=== PATIENT | female | born 1940 | race Caucasian/White ===

== ENCOUNTER 2016-10-13 22:00 | Inpatient (IN) | payer MEDICARE ==
--- NOTE | ~2016-10-13 | EKG ---
PATIENT: DWIGHT MANNING UNIT #: [id number] Ventricular Rate: 100 BPM Atrial Rate: 100 BPM P-R Interval: 162 ms QRS Duration: 96 ms Q-T Interval: 360 ms QTC Calculation(Bezet): 464 ms P [place]: 54 degrees Calculated R [place]: 51 degrees Calculated T [place]: 36 degrees Diagnosis Line: Normal sinus rhythm Diagnosis Line: Normal ECG Diagnosis Line: No previous ECGs available Diagnosis Line: Confirmed by KERRI SHIN MD ([id number]) on 10/15/2016 Diagnosis Line: 5:32:43 PM INTERPRETING MD: ALEIDA WEATHERS
--- NOTE | ~2016-10-13 | CO ---
Unit #: [id number] #: [id number] Patient: DWIGHT MANNING [id number] [address] [place], [place] [address] [id number] MR#: [id number] NAME: DWIGHT MANNING. ROOM: 212 Age: 75 Sex: F Admission Date: 10/13/2016 : 1940 Attending Physician: Pauline Banks M.D. Consultation Date: 10/14/2016 CONSULTATION REPORT CHIEF COMPLAINT Left flank pain, nausea and vomiting. HISTORY OF PRESENT ILLNESS This 75-year-old woman who reports not seeing a physician for 30 years and having no medical problems was admitted earlier through the emergency department with an obstructing distal left ureteral stone. She has developed fever, hypotension and has markedly elevated white count and is thus expedited for emergency stent placement and seen in the preoperative holding area this morning. She relates no prior history of kidney stone or of urinary infection. In fact, she has no history of lower urinary tract symptoms, gross hematuria or incontinence either. She noted onset of left flank pain yesterday morning and reports severe nausea and vomiting, counted as 40 times since onset of symptoms, although it is currently controlled. She presented to the emergency department and was noted to have a 7 x 5 mm stone obstructing the distal left ureter near the bladder with moderately severe hydroureteronephrosis. Other findings on CT are noted below. PAST MEDICAL HISTORY No illnesses reported. PAST SURGICAL HISTORY None reported. MEDICATIONS None. ALLERGIES Sulfa, morphine, Phenergan. She had an iodine reaction to contrast injection 60 years ago with rash. FAMILY HISTORY Noncontributory. SOCIAL HISTORY Nonsmoker. REVIEW OF SYSTEMS Pertinent for the above. PHYSICAL EXAMINATION Unit #: [id number] #: [id number] Patient: DWIGHT MANNING GENERAL: The patient is alert, currently fairly comfortable with her pain controlled and no nausea or vomiting on going. She does not appear septic. VITAL SIGNS: Her temperature was 101 degrees, blood pressure 91/44. She reports that she always has low blood pressure, heart rate 95, height 5 feet 5 inches. HEENT: Unremarkable. ABDOMEN: She is overweight with clear anterior left upper quadrant tenderness and left CVA tenderness. EXTREMITIES: No edema. NEUROLOGIC: Intact. DIAGNOSTIC STUDIES LABORATORY RESULTS: Urinalysis shows 5 to 10 wbc's, 10 to 25 rbc's, 1+ blood, no nitrites, 2+ leukocyte esterase. BUN 23, creatinine 1.1. WBC 23.6. IMAGING STUDIES: CT scan shows the obstructing distal left 7 x 5 mm stone. There was also a 6 mm left lower pole renal stone ipsilaterally nonobstructing. In the right kidney, there is a 3 mm nonobstructing peripheral stone in the lower pole also and an angiomyolipoma affecting the anterior lower portion of the kidney measuring 3.2 x 2.8 cm. IMPRESSION 1. Obstructing distal left ureteral stone, presentation consistent with obstructive pyelonephritis. I have explained in detail to the patient the indication for stenting and bladder drainage as a first-stage followed by completion ureteroscopy in which case we can treat both her ureteral and renal stones. 2. Small right renal stone not thought clinically significant at this time. 3. 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 PLAN We will proceed directly with emergency placement of left ureteral stent and catheter drainage. She received Rocephin 5 hours ago and we will await urine culture results. Dictated by... Bryan Hercules M.D. MESERET/be TD: 10/15/2016 00:37 JOB #: [id number] CONSULTATION REPORT X Bryan Hercules MD X CONSULTATION REPORT
--- NOTE | ~2016-10-13 | OR ---
Unit #: [id number] #: [id number] Patient: DWIGHT MANNING [id number] [address] [address] [id number] Kayli MR#: [id number] NAME: DWIGHT MANNING. ROOM: 212 Date of Procedure: 10/14/2016 Admission Date: 10/13/2016 Surgeon: Bryan Hercules M.D. : 1940 Attending Physician: Pauline Banks M.D. OPERATIVE REPORT PREOPERATIVE DIAGNOSIS Obstructive left pyelonephritis. POSTOPERATIVE DIAGNOSIS Obstructive left pyelonephritis. PROCEDURE PERFORMED Cystoscopy, left retrograde aspiration of renal pelvic urine, placement of double-J ureteral stent and Eubanks catheter. ANESTHESIA General. INDICATIONS FOR PROCEDURE This 75-year-old woman presents with obstructive left pyelonephritis from a 7 mm distal left ureteral stone and is taken urgently to the operating room. DESCRIPTION OF PROCEDURE The patient was given satisfactory general anesthesia and positioned in dorsal lithotomy. The genitalia were prepped and draped. The 21-Armenian rigid cystoscope was introduced with a 30-degree lens and video. There is spotty evidence of acute cystitis cystic, mild and diffusely as well as some evidence of chronic trigonitis. The right ureteral orifice was difficult to identify. The left ureteral orifice was bulging prominently. The remainder of the bladder was normal with healthy mucosa. Fluoroscopy demonstrated a full standing column of contrast from the level of the bladder, severe hydroureteronephrosis and persistent nephrogram due to severe obstruction. A Pollack catheter was introduced in the left ureteral orifice over a sensor guidewire and advanced up to the kidney where 10 mL of cloudy yellow urine were submitted for additional culture. Over the guide wire, I then placed a 24 x 6 double-J stent internally and drained the bladder with a Eubanks catheter to complete the procedure. Dictated by... Bryan Hercules M.D. MESERET/be TD: 10/15/2016 01:10 Unit #: [id number] #: [id number] Patient: DWIGHT MANNING JOB #: [id number] OPERATIVE REPORT X Bryan Hercules MD PROCEDURE OPERATIVE NOTE
--- NOTE | ~2016-10-13 | CT2 ---
[facility] A Service of [facility] RADIOLOGY TEXT RESULTS PATIENT: DWIGHT MANNING LOCATION: A : 42 UNIT #: [id number] AGE: [address]: Pauline Banks MD SEX: F ORDER DR: [id number] [facility] [address] [facility]. [place], [place] [address] [id number] MR#: [id number] Acc #: [id number] NAME: DWIGHT MANNING. : 1940 SEX: F STUDY DATE/TIME: 10/13/2016 20:54 UNIT: [facility] ROOM: [facility] STUDY DESCRIPTION: CT Abd and Pelv W Cont Attending Physician: Pauline Banks M.D. Ordering Physician: Bryan Del Real M.D. Primary Care Physician: No Primary Care Physician MEDICAL IMAGING REPORT This report is preliminary unless electronic signature is present EXAMINATION CT abdomen and pelvis with contrast. DATE 10/13/2016 HISTORY Nausea, vomiting, and abdominal pain for 2 days. COMPARISON None. PROCEDURE 5 mL axial images from the lung bases through the lesser trochanters after intravenous and enteric contrast administration. Sagittal and coronal reformatted images were obtained. This CT exam was performed with one or more of the following radiation dose reduction techniques: automatic exposure control, adjustment of mA and/or kV according to patient size, and iterative reconstruction. FINDINGS ABDOMEN FINDINGS: Severe left hydronephrosis and hydroureter is present secondary to an obstructing 7 x 5 mm left ureterovesical junction stone. There is diminished enhancement of the left kidney and perinephric stranding. Small left renal cyst. Nonobstructing stone in the left upper renal pole measures 7 mm. 2 small nonobstructing right renal stones. Heterogeneous mixed soft tissue mass-fat density lesion in right anterior mid kidney measures 3.2 x 2.8 cm with microscopic fat (Hounsfield units -40), consistent with benign renal angiomyolipoma. Lung bases are free of consolidation. Reflux of the enteric contrast into lower thoracic esophagus. Small esophageal hiatal hernia. [facility] A Service of [facility] RADIOLOGY TEXT RESULTS PATIENT: DWIGHT MANNING LOCATION: [facility] 212-01 : 42 UNIT #: [id number] AGE: [address]: Pauline Banks MD SEX: F ORDER DR: 2.4 cm gallstone without pericholecystic inflammation or biliary dilation. Liver, spleen, pancreas and adrenal glands are normal. A small umbilical hernia contains only fat. Normal appendix. PELVIS FINDINGS: Urinary bladder, uterus and rectum are normal. Sparse sigmoid diverticular changes without acute diverticulitis. Facet arthropathy in the lower lumbar spine. No acute osseous abnormalities. IMPRESSION 1. 7 x 5 mm obstructing left ureterovesical junction stone with sgrzeqex-ib-wzppqd left hydronephrosis, hydroureter and diminished enhancement of left kidney. 2. Nonobstructing bilateral intrarenal calculi. 3. 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 4. Uncomplicated cholelithiasis. 5. Uncomplicated sigmoid diverticulosis. 6. Small esophageal hiatal hernia with reflux of enteric contrast into the lower thoracic esophagus. 7. The appendix is normal. Dictated by... Dunia Segovia M.D. THIS IS AN ELECTRONICALLY VERIFIED REPORT Dunia Segovia M.D. at 10/14/2016 10:02 AM Jorge TD: 10/14/2016 09:18 JOB #: [id number] MEDICAL IMAGING REPORT COPY
--- NOTE | ~2016-10-13 | HP ---
Unit #: [id number] #: [id number] Patient: DWIGHT MANNING [id number] [address] [address] [id number] I MR#: [id number] NAME: DWIGHT MANNING. ROOM: 212 Age: Sex: F Admission Date: 10/13/2016 : 1940 Attending Physician: Pauline Banks M.D. HISTORY AND PHYSICAL REVISED REPORT CHIEF COMPLAINT Renal colic with obstructing 7.5 mm distal left ureteral stone, intractable nausea and vomiting, urinary tract infection. HISTORY OF PRESENT ILLNESS This pleasant, healthy 75-year-old female is admitted for renal colic. The patient states over the past couple weeks she notes sharp, intermittent transient back pain. This morning, she developed severe lower abdominal pain with intractable nausea and vomiting. She denies urinary symptoms. She presents to this emergency department where she is mildly tachycardic. CT scan performed shows an obstructing left distal ureteral stone with a cbfcaryt-uc-znzxta hydronephrosis and hydroureter. Urinalysis does show hematuria and pyuria. However, patient is quite stable, has no flank pain, and I do not believe this represents obstructive pyelonephritis. In the ER, she was treated with Zofran, Dilaudid, bolus with saline, given 1 gram of ceftriaxone and Urology has also been notified. PAST MEDICAL HISTORY Completely negative. ALLERGIES 1. Sulfa. 2. Phenergan. 3. Iodine. 4. Morphine. HOME MEDICATIONS None. SOCIAL HISTORY The patient lives alone. She is a lifelong nonsmoker, does not drink alcohol. FAMILY HISTORY Positive for kidney stones. REVIEW OF SYSTEMS Notable for intractable nausea and vomiting with lower abdominal pain, please see above details, recent sharp back pain, six vaginal deliveries, and rheumatic fever as a child. All other systems were reviewed and are Unit #: [id number] #: [id number] Patient: DWIGHT MANNING negative. PHYSICAL EXAMINATION VITAL SIGNS: Temperature 98.2, pulse 111, respirations 16, blood pressure 122/58, O2 saturation 100% on room air. GENERAL: Pleasant, 75-year-old female currently in no acute distress after receiving Dilaudid. HEENT: Eyes PERRLA. Extraocular muscles are intact. Pharynx dry mucosal membranes. NECK: Supple without adenopathy or thyromegaly. CHEST: Clear. BACK: No CVA tenderness. HEART: Normal S1, S2 without S3, S4 or murmur. ABDOMEN: Bowel sounds are present. Mild left lower quadrant tenderness without rebound or guarding. No hepatosplenomegaly or masses. EXTREMITIES: Without clubbing, cyanosis, or edema. Pedal pulses are present. NEUROLOGIC: Awake, alert, oriented. Cranial nerves are intact. Equal strength throughout. DIAGNOSTIC STUDIES LABORATORY: Hematocrit 39.6, white blood count 25.3, normal platelet count with 2 bands noted. SMA-12 glucose 140, potassium 3.2. Urinalysis 2+ leukocyte esterase with 10-25 rbc's, 5-10 wbc's, 1+ bacterial but few squamous epithelial cells noted, 1+ bacteria, 3+ ketones. IMAGING: CT scan 7.5 distal left ureteral obstructing stone at the left UVJ with moderate severe hydronephrosis and hydroureter. There is a right renal angiomyolipoma, gallstones, diverticular disease, acid reflux. ASSESSMENT 1. Renal colic with obstructing 7.5 distal left ureteral stone associated with hydronephrosis, patient is experiencing intractable nausea and vomiting along with intractable pain. 2. Urinary tract infection but no evidence of obstructive pyelonephritis on exam. 3. Hypokalemia secondary to nausea and vomiting. PLAN 1. IV fluids and supportive treatment. 2. Replace potassium and check magnesium. 3. Continue Rocephin for now pending cultures. 4. Urology consultation was done in the ER and they will be seeing the patient in the morning. They asked that the patient be made n.p.o. for procedure in the morning. 5. SCDs for DVT prophylaxis. 6. Obtain EKG. Dictated by Unit #: [id number] #: [id number] Patient: DWIGHT MANNING M.D. AML/elizabeth TD: 10/13/2016 22:54 JOB #: [id number] CC: [place]/invision Please Delete HISTORY AND PHYSICAL Page 1 of 1 X Gisselle Spence MD X HISTORY AND PHYSICAL
--- NOTE | ~2016-10-13 | DS ---
Unit #: [id number] #: [id number] Patient: DWIGHT RAMSEY [id number] [address] [address] [id number] I MR#: [id number] NAME: DWIGHT RAMSEY. ROOM: 212 Age: 75 Sex: F Admission Date: 10/13/2016 : 1940 Discharge Date: 10/16/2016 Attending Physician: Pauline Banks M.D. Primary Care Physician: Primary Care Physician No DISCHARGE SUMMARY PRIMARY CARE PROVIDER None. PRINCIPAL DIAGNOSES 1. Obstructive left ureteral stone with associated hydronephrosis, now status post cystoscopy and stent placement. 2. Systemic inflammatory response syndrome. The patient has had negative urine culture throughout hospitalization. 3. Mild hypocalcemia. 4. Illness-related thrombocytopenia, now resolved. CONSULTANTS Dr. Hercules, Urology. PROCEDURES Cystoscopy, left retrograde aspiration of renal pelvic urine, placement of double-J ureteral stent and Eubanks catheter placement. These occurred without complication. CLINICAL HISTORY AND HOSPITAL COURSE Ms. Ramsey is a nice 75-year-old female without a past medical history, who presents to the emergency department with left flank pain. Please refer H and P for further details. CT scan revealed a large 7 x 5 mm left ureterovesical junction stone with associated hydronephrosis. The patient was subsequently admitted. The patient was placed on empiric IV fluids and antibiotics, and Dr. Hercules was consulted. The patient subsequently underwent ureteral stent placement. Postoperatively, she has done very well. Eubanks catheter has been removed, and she is urinating spontaneously without any evidence of hematuria. Plan is to remove ureteral stent in approximately 10 to 14 days. Upon presentation, the patient was found to have significant leukocytosis of 25,000. There were concerns about underlying urinary tract infection. However, multiple urine cultures have all remained negative. I am going to empirically her treat with antibiotics given her stent placement, but I do not feel she meets sepsis criteria given lack of infection. The patient will be discharged home later today. DISCHARGE CONDITION Stable. Unit #: [id number] #: [id number] Patient: DWIGHT RAMSEY DISCHARGE STATUS Discharged to home. DISCHARGE MEDICATIONS Omnicef 300 mg b.i.d. for 10 days, ibuprofen 800 mg one every 8 hours p.r.n. for pain number given 10. DISCHARGE INSTRUCTIONS She can follow regular diet. She can increase her activity as tolerated. FOLLOWUP The patient will follow up with Dr. Hercules in his office in approximately 10 days. Dictated by... Katalina Flowers/be TD: 10/18/2016 05:33 JOB #: [id number] DISCHARGE SUMMARY X Pauline Banks MD X DISCHARGE SUMMARY
[2016-10-13 19:38] LABS: URINE SOURCE CLEAN CATCH
[2016-10-13 19:42] LABS: BASOPHIL# 0.1 X10e3 (0-0.3); BASOPHIL% 0.3 % (0-2.5); HEMATOCRIT 39.6 % (35.0-45.0); HEMOGLOBIN 13.1 gm/dL (12.0-16.0); LYMPHOCYTE# 0.4 X10e3 (1.0-3.5); LYMPHOCYTE% 1.6 % (17.0-45.0); MEAN CELL VOLUME 89.8 FL (83-96); MEAN CORPUSCULAR HEMOGLOBIN 29.7 PG (28-34); MEAN CORPUSCULAR HGB CONC 33.1 g/dL (30-36); MEAN PLATELET VOLUME 6.8 FL (6.5-11.5); MONOCYTE# 1.2 X10e3 (0-1.0); MONOCYTE% 4.9 % (3.0-12.0); NEUTROPHIL# 23.6 X10e3 (1.5-7.1); NEUTROPHIL% 93.2 % (40-75); PLATELET COUNT 260 X10e3 (140-420); RED BLOOD COUNT 4.41 X10e (3.90-5.30); RED CELL DISTRIBUTION WIDTH 14.3 % (11.0-15.5); WHITE BLOOD COUNT 25.3 X10e3 (4.0-10.5)
[2016-10-13 19:44] LABS: DIFF IND YES
[2016-10-13 19:46] LABS: URINE APPEARANCE CLEAR; URINE BILIRUBIN NEG (NEG); URINE BLOOD 1+ (NEG); URINE COLOR YELLOW; URINE GLUCOSE NEG (NEG); URINE KETONE 3+ (NEG); URINE LEUKOCYTE ESTERASE 2+ (NEG); URINE NITRATE NEG (NEG); URINE PH 6.5 (5-8); URINE PROTEIN NEG (NEG); URINE SPECIFIC GRAVITY 1.022 (1.003-1.035); URINE UROBILINOGEN 0.2 MG/DL (NEG)
[2016-10-13 19:47] LABS: URINE BACTERIA AUWI 1+ (NEGATIVE); URINE SQUAMOUS EPITHELIAL CELL FEW /[HPF]
[2016-10-13 20:00] LABS: ALBUMIN SERUM 4.1 g/dL (3.5-5.0); BILIRUBIN, DIRECT 0.1 mg/dL (0.0-0.2); BILIRUBIN,TOTAL 1.1 mg/dL (0.2-2.0); BUN/CREATININE RATIO 20.9; CALCIUM SERUM 8.9 mg/dL (8.4-10.2); CREATININE SERUM 1.1 mg/dL (0.6-1.4); GLOM FILT RATE Estimated 51.7 mL/min (>60); POTASSIUM 3.2 mmol/L (3.5-5.1); PROTEIN TOTAL SERUM 7.2 g/dL (6.0-8.3)
[2016-10-13 20:05] LABS: PLATELET ESTIMATE NORMAL (NORMAL)
[~2016-10-13 22:00] MED LIST: NO MEDICATIONS
[2016-10-14 05:36] LABS: BASOPHIL% 0.1 % (0-2.5); HEMATOCRIT 34.8 % (35.0-45.0); HEMOGLOBIN 11.5 gm/dL (12.0-16.0); LYMPHOCYTE# 0.5 X10e3 (1.0-3.5); LYMPHOCYTE% 2.1 % (17.0-45.0); MEAN CELL VOLUME 90.5 FL (83-96); MEAN CORPUSCULAR HEMOGLOBIN 29.8 PG (28-34); MEAN PLATELET VOLUME 6.6 FL (6.5-11.5); MONOCYTE% 4.4 % (3.0-12.0); NEUTROPHIL% 93.4 % (40-75); PLATELET COUNT 190 X10e3 (140-420); RED BLOOD COUNT 3.85 X10e (3.90-5.30); RED CELL DISTRIBUTION WIDTH 14.5 % (11.0-15.5); WHITE BLOOD COUNT 23.6 X10e3 (4.0-10.5)
[2016-10-14 05:40] LABS: DIFF IND NO
[2016-10-14 06:35] LABS: BUN/CREATININE RATIO 20.9; CALCIUM SERUM 8.2 mg/dL (8.4-10.2); CREATININE SERUM 1.1 mg/dL (0.6-1.4); GLOM FILT RATE Estimated 51.7 mL/min (>60); MAGNESIUM 1.6 mg/dL (1.6-3.0); POTASSIUM 4.2 mmol/L (3.5-5.1)
[2016-10-15 06:30] LABS: HEMATOCRIT 35.1 % (35.0-45.0); HEMOGLOBIN 11.6 gm/dL (12.0-16.0); MEAN CELL VOLUME 90.5 FL (83-96); MEAN CORPUSCULAR HGB CONC 33.1 g/dL (30-36); MEAN PLATELET VOLUME 8.1 FL (6.5-11.5); RED BLOOD COUNT 3.88 X10e (3.90-5.30); RED CELL DISTRIBUTION WIDTH 15.1 % (11.0-15.5); WHITE BLOOD COUNT 20.4 X10e3 (4.0-10.5)
[2016-10-15 07:20] LABS: BLOOD UREA NITROGEN 19 mg/dL (9-23); BUN/CREATININE RATIO 21.11; CARBON DIOXIDE 22 mmol/L (22-31); CHLORIDE 106 mmol/L (100-111); CREATININE SERUM 0.9 mg/dL (0.6-1.4); GLOM FILT RATE Estimated ABOVE60 mL/min (>60); GLUCOSE FASTING 76 mg/dL (70-110); MAGNESIUM 1.9 mg/dL (1.6-3.0); POTASSIUM 4.1 mmol/L (3.5-5.1); SODIUM 134 mmol/L (135-145)
[2016-10-16 04:26] LABS: HEMOGLOBIN 11.3 gm/dL (12.0-16.0); MEAN CELL VOLUME 89.1 FL (83-96); MEAN CORPUSCULAR HEMOGLOBIN 29.5 PG (28-34); MEAN CORPUSCULAR HGB CONC 33.1 g/dL (30-36); MEAN PLATELET VOLUME 7.4 FL (6.5-11.5); RED BLOOD COUNT 3.81 X10e (3.90-5.30); RED CELL DISTRIBUTION WIDTH 14.2 % (11.0-15.5); WHITE BLOOD COUNT 12.2 X10e3 (4.0-10.5)
[2016-10-16] MEDS ORDERED: OMNICEF300 M1 PO (12:06)
[2016-10-16] MEDS ORDERED: IBUPROFEN800 MG PO (12:06)
[2016-11-02] MEDS ORDERED: NO MEDICATIONS (11:27)
== END 2016-10-16 13:58 | disposition home or self-care (01) | DRG 694 ==
LOC: CED 22:00 → CEDOF 22:20 → C2A 23:49
PROVIDERS: Emergency Medicine; Internal Medicine; Urology
PROC: 0T9B80Z Drainage of Bladder with Drainage Device, Via Natural or Artificial Opening Endoscopic (ICD-10-PCS; 2016-10-14)
PROC: 0T778DZ Dilation of Left Ureter with Intraluminal Device, Via Natural or Artificial Opening Endoscopic (ICD-10-PCS; principal; 2016-10-14 07:00)
DX: N13.2 Hydronephrosis with renal and ureteral calculous obstruction (principal); D69.6 Thrombocytopenia, unspecified; D17.71 Benign lipomatous neoplasm of kidney; Z88.2 Allergy status to sulfonamides; E87.6 Hypokalemia; E83.51 Hypocalcemia
CPT/HCPCS: 36415; 74177; 80048; 80076; 81003; 83690; 83735; 85025; 85027; 87086; 88108; 93005; 96361; 96374; 96375; 99285; C2617; J0696; J1170; J1650; J2250; J2370; J2405; J3010; Q9967

== ENCOUNTER → 2016-11-06 | Day surgery (SDC) | payer MEDICARE ==
[~2016-11-06] MED LIST changes: +IBUPROFEN800 MG PO; +OMNICEF300 M1 PO
--- NOTE | ~2016-11-06 | OR ---
Unit #: [id number] #: [id number] Patient: DWIGHT MANNING [id number] [address] [place], [place] [address] [id number] MR#: [id number] NAME: DWIGHT MANNING. ROOM: Date of Procedure: 11/06/2016 Admission Date: 11/06/2016 Surgeon: Bryan Hercules M.D. : 1940 Attending Physician: Bryan Hercules M.D. Referring Physician: Bryan Hercules M.D. OPERATIVE REPORT PREOPERATIVE DIAGNOSES Left ureteral and renal calculi. POSTOPERATIVE DIAGNOSES Left ureteral and renal calculi. PROCEDURES PERFORMED Cystoscopy with left rigid and flexible ureteroscopy, holmium laser lithotripsy, basket extraction of fragments, stent removal. ANESTHESIA General with local supplementation. INDICATIONS FOR PROCEDURE This is a 76-year-old woman with obstructive pyelonephritis from a 7 mm distal left ureteral stone who presented with a 6 mm ipsilateral lower pole stone also. She has had her stent indwelling and well tolerated and presents for definitive treatment. DESCRIPTION OF PROCEDURE The patient was given preoperative antibiotics and satisfactory general anesthesia. She was positioned in dorsal lithotomy and the genitalia were prepped and draped. The 21-Burmese rigid cystoscope was introduced with 30-degree lens and video. The stent was grasped and extracted then a Pollack catheter substituted up the ureter and a Sensor guidewire placed alongside of which a rigid ureteroscope was passed in an abundantly dilated ureter to where the stone was seen. As it was smooth, I attempted basket extracted, but it was too large to pass through the distal ureteral tunnel despite the dilation. I used the 200 nm laser fiber at settings of 10 and 1.0 finding it to be quite a hard stone, but it was broken down sufficiently to remove the main fragment with the basket. There appeared to be no significant remaining fragments. I placed a second guidewire and advanced the flexible ureteroscope. I examined every calyx of the kidney multiple times including fluoroscopic confirmation, but did not find a lower pole or any other significant stone. Coming down in the ureter, I found a large fragment, which may have represented that stone or possibly an additional fragment from the original stone, but I am confident that she is stone free at this point after extracting that. With all devices removed, the bladder was drained. The cystoscope removed and a Uro-jet was applied. Stone sent for chemical analysis. The patient will be given a one month Unit #: [id number] #: [id number] Patient: DWIGHT MANNING followup in the office for results. Dictated by... Katalina Goldberg/be TD: 11/07/2016 05:51 JOB #: [id number] OPERATIVE REPORT Page 1 of 1 X Bryan Hercules MD X PROCEDURE OPERATIVE NOTE
== END | disposition home or self-care (01) ==
LOC: CSUR 10:05
PROVIDERS: Urology
DX: N20.2 Calculus of kidney with calculus of ureter (principal); Z87.442 Personal history of urinary calculi; Z88.2 Allergy status to sulfonamides; Z88.8 Allergy status to other drugs, medicaments and biological substances; Z88.5 Allergy status to narcotic agent; Z91.041 Radiographic dye allergy status
CPT/HCPCS: 82365; 84703; 88300; C1758; J0690; J1885; J2250; J2405; J3010